=== PATIENT | male | born 1950 | race Caucasian/White ===

== ENCOUNTER → 2016-12-21 | Outpatient (CLI) | payer OTHER, BC ==
[~2016-12-21] MED LIST: ASPIRIN325 MG PO; ATORVASTATIN CA10 MG PO; FLUTICASONE PRO16 GM BOTH NARES; INDOCIN25 MG PO; LOSARTAN POTASS50 MG PO; NORCO 5/3251 TABLET PO; TAMSULOSIN HCL0.4 MG PO
== END | disposition home or self-care (01) ==
LOC: NUC 07:30
DX: I44.7 Left bundle-branch block, unspecified (principal)
CPT/HCPCS: 78452; 93017; A9500; J2785